=== PATIENT | female | born 1985 | race Caucasian/White ===

== ENCOUNTER → 2017-03-18 | Day surgery (SDC) | payer OTHER ==
[~2017-03-18] VITALS: Ht 170.2 cm; Wt 66.1 kg
[2017-03-18] VITALS (11 sets, daily range): BP systolic 104–119; BP diastolic 53–79; PULSE 50–96; RESP 13–21; O2SAT 93–100
[~2017-03-18] MED LIST: Atropine 0.4 mg/mL Inj IVPUSH PRN; Bupivacaine-MPF 0.5% 30 mL Inj INFILTRATE ONE; Dexamethasone 4 mg/mL Inj ONE; EPHEDrine Sulfate 50 mg/mL Inj IM ONE; EPHEDrine Sulfate 50 mg/mL Inj IVPUSH PRN; EPHEDrine/NS 5 mg/mL 5 mL Syringe ONE; Glycopyrrolate 0.2 MG/ML 1mL Inj ONE; HYDR-4003 PO; HYDROmorphone 1 mg/mL Inj IVPUSH PRN; Labetalol 5 mg/mL 20 mL Inj IV PRN; Lactated Ringer's 1,000 ML IV SCH; Lactated Ringer's 500 ML IV PRN; MetoCLOpramide 5 mg/mL 2 mL Inj IVPUSH PRN; Neostigmine 1 mg/mL 10 mL Inj ONE; Ondansetron 2 mg/mL 2 mL Inj IVPUSH PRN; Ondansetron 2 mg/mL 2 mL Inj ONE; Phenylephrine 10,000 mCg/mL Inj IVPUSH PRN; Propofol 10,000 mCg/mL 20 mL Inj ONE; Rocuronium 10 mg/mL 5 mL Inj ONE; diphenhydrAMINE 25 mg Capsule PO PRN; fentaNYL-PF 50 mCg/mL 2 mL Inj IVPUSH PRN; fentaNYL-PF 50 mCg/mL 2 mL Inj ONE; hydrOXYzine Inj 25 MG/1 mL SDV IM ONE; oxyCODONE-Acetamin 5-325 mg Tablet PO PRN
[2017-03-18] MEDS: Lactated Ringer's 1,000 ML IV SCH ×2 (09:33→12:56)
--- NOTE | 2017-03-18 13:13 | PCM.HPANE ---
Patient Data Surgeon Admitting Provider: Attending Provider:Keith Nolen MD Primary Care Physician:Eyal Other Provider:Troy Hugo Anesthesia Reason for Visit Chronic Pelvic Pain Ht/WT & BMI Height (Feet): 5 Height (Inches): 7.00 Weight (Kilograms): 66.1 Body Mass Index 22.00 Allergies Coded Allergies: Sulfa (Sulfonamide Antibiotics) (Verified Allergy, Severe, THROAT SWELLING , 03/13/17) Penicillins (Verified Adverse Reaction, Intermediate, nausea, vomiting, ) Past Anesthesia History Anesthesia History: Denies:: Abnormal Airway, Anesthesia Reactions (woke up "panic"- put back to sleep ), Difficult Intubation, Fam Anesthesia Reaction Diabetes History Hx Diabetes?: No MRSA MRSA: No Medications Hypertension Medication: No Home Meds Incl Beta Rishi: No Reported Medications Hydrocodone-Acetaminophen 5-325 mg 1 Each Tablet1 Tablet PO Q6H PRN For Pain Ref 0 03/13/17 History History of ENT Problems?: No HEENT History: Denies:: Abnormal Airway Cataracts Difficult Intubation Dysphagia Glaucoma Hearing Problem Sinus Problem TMJ Denture Type: None Teeth Condition: Within Normal Limits Hx of Heart Problems?: No Cardiovascular History: Denies:: AICD Abdominal Aortic Aneurism Atrial Fibrillation Cardiac Surgery Chest Pain Congestive Heart Failure Coronary Artery Disease Edema Heart Murmur Hypertension Irregular Heartbeat Pacemaker Peripheral Vascular Rheumatic Fever Thrombophlebitis Valvular Heart Disease Hx of Respiratory Problem?: No Respiratory History: Denies:: Asthma COPD Chest Surgery Cough Dyspnea Emphysema Hemoptysis Oxygen Administration Pneumonia Pulmonary Embolism Tuberculosis Use of C-PAP Machine Use of Inhalers / NEBS Hx Neurologic Problems?: No Neurological History: Denies:: Alzheimer's Disease CVA Dementia Dizziness Headaches Multiple Sclerosis Parkinson's Disease Peripheral Neuropathy Seizures TIA Hx of GI Problems?: No Hx of Problems?: No Genitourinary History: Denies:: Kidney Stones Urinary Tract Infection Female Hx: Denies:: Currently (S/P TUBAL) Problems with Breasts? Skin History: Denies:: History Skin Disorders? Pressure Ulcers Hx Musculoskeletal Problems?: No Musculoskeletal History: Denies:: Back Injury Fibromyalgia Joint Replacement Musculoskeletal Trauma Myasthenia Gravis Osteoarthritis Hx of Psycho/Social Problems?: Yes Psycho Social History: Positive for:: Hx Depression Denies:: Anxiety Hx Surgeries?: Yes (tubal ) Hx Any Other Health Problems?: Yes Other History: Denies:: Cancer Thyroid Disease History Blood Transfusions: Positive for:: Accept Blood Products? Denies:: Blood Transfusions Hx Diabetes: No Hx Alcohol Use: YesAlcoholic Drinks Per Day: two drinks every few weeksHx Substance Use: Yes (marijuana inhale randomly)Have You Smoked inLast 12 mo: No Stop/Bang S-Snoring: Do You Snore Loudly: No T-Tired: feel tired, fatigued: Yes O-Obsered: Observed not breath: No P-Blood Pressure: treated: No B- Body Mass Index > 35 kg/m2: No A- Age over 50: No N- Neck Large Circumference: No G- Gender Male: No RAMÓN Total Score: 1 RAMÓN Risk Assessment: Low Risk, <3 Yes Risk Assessment Category Category 1A: Patient has history of documented sleep apnea, and HAS NOT received any narcotic, sedative or anesthesia administration during this stay. Category 1B: Patient has history of documented sleep apnea, and HAS received any narcotic , sedative or anesthesia administration during this stay Category 2: Patient has SUSPECTED Obstructive Sleep Apnea, and HAS received any narcotic , sedative or anesthesia administration during this stay. Category 3: Patient has SUSPECTED Obstructive Sleep Apnea and HAS NOT received narcotic, sedative or anesthesia administration during this stay. Category 4: Outpatient in Procedural Areas with known sleep apnea or who screen positive for High Risk via the STOP/BANG questionnaire. Exam Exam Vital Signs Vital Signs Date Time Temp Pulse Resp B/P Pulse Ox O2 Delivery O2 Flow Rate FiO2 03/18/17 09:33 36.2 67 14 117/79 100 Room Air General Appearance: Alert, Oriented X3, Cooperative, No Acute Distress HEENT/AIRWAY: MP 1 Lungs: Clear to Auscultation, Normal Air Movement Heart: Exam Unremarkable, Regular Rate/Rhythm, No Murmurs/Rubs/Gallops Meds/Labs/Diagnostics Admission Meds Current Medications Lactated Ringer's (Lr) 1,000 ml @ 120 mls/hr Q8H20M IV Last administered on t 09:33; Start 03/18/17 at 05:00; Stop 03/18/17 at 13:19 Plan Impression Patient chart reviewed, patient interviewed and anesthestic plan with risks, benefits, and alternatives discussed, and informed consent obtained. NPO per Anesth. Guidelines: Yes ASA Physical Status: ASA2 Mod Systemic Disease Anesthetic Plan: GA Bene/Risks/Altern/Consents: Yes HP Complete Prior to Induction: Yes Nicholas Christian MD Mar 18, 2017 10:04
--- NOTE | 2017-03-18 14:16 | PCM.DIMED ---
Discharge Instructions Date of Service Mar 18, 2017 Dates of Hospitalization Diet Discharge Diet: No restrictions Activity Discharge Activity: No restrictions Call your provider Call your provider for: Fever or Chills, Shortness of breath, Bleeding, Chest pain, Vomitting, Excessive diarrhea, Weakness (unilateral) Patient Instructions Follow-up with PCP in: 2 weeks Keith Nolen MD Mar 18, 2017 14:16
--- NOTE | 2017-03-18 14:35 | PCM.ANEP1 ---
Post Anesthesia PACU Phase 1 Assessment Vital Signs Vital Signs Date Time Temp Pulse Resp B/P Pulse Ox O2 Delivery O2 Flow Rate FiO2 03/18/17 14:27 80 20 111/54 93 Room Air 03/18/17 14:20 96 13 110/62 93 Room Air 03/18/17 14:15 79 14 108/53 97 Room Air 03/18/17 14:10 36.3 73 17 119/62 98 Room Air 03/18/17 09:33 36.2 67 14 117/79 100 Room Air Anesthetic Administered: GA Level of Alertness: Awake, talking RICHARDSON's with Equal Strength: Yes Pain: No Nausea or Vomiting: Yes CV Function & Hydration Stable: Yes Airway Device: Endotrachial Tube Oxygen Delivery: Nasal Cannula Lungs: Clear to Auscultation, Normal Air Movement PACU Phase 2 Assessment Complications: No Follow up Care: N/A Patient Instructions Provided: N/A Nicholas Christian MD Mar 18, 2017 14:35
--- NOTE | 2017-03-18 14:52 | OP ---
[address] [address] OPERATIVE REPORT PATIENT: NOREEN HUNT : 1985 MR#: [id number] ADMIT: 03/18/2017 JOB ID: [id number] DATE OF SURGERY: 03/18/2017 PROCEDURE: Diagnostic laparoscopy. PREOPERATIVE DIAGNOSIS(ES): Chronic pelvic pain. POSTOPERATIVE DIAGNOSIS(ES): Chronic pelvic pain. SURGEON: Keith Nolen MD VEHICLE MONITOR TECHNICIAN: Natalie Sy MD. The assistance of Dr. Sy was necessary for proper exposure of anatomical structures, visualization of them during the procedure, and retraction and manipulation of the tissue. ANESTHESIA: General. Nicholas Christian MD ESTIMATED BLOOD LOSS: 2 mL ESTIMATED URINE OUTPUT: 100 mL FLUIDS: 700 mL of lactated Ringer. COMPLICATIONS: None. INDICATION FOR THE PROCEDURE: The patient is a 31-year-old who had a sterilization procedure with bilateral salpingectomy a year ago. She has been complaining of chronic pelvic pain since then, mostly on the left side, located in her left adnexa. She consented for diagnostic laparoscopy to rule out any possible adhesions. FINDINGS: Normal appearance of the cervix, vagina, and perineum. The uterus is normal in size, boggy in appearance, normal in shape. Normal appearance of the ovaries, surgically absent fallopian tubes. No adhesions identified between the uterus and ovaries and adjacent structures. Serial images, a total number of 12, were obtained during the diagnostic laparoscopy. DESCRIPTION OF PROCEDURE: The patient was taken to the operating room, where she underwent general anesthesia without difficulties. The patient was placed in dorsal lithotomy position using Yovany stirrups. She was prepped and draped in the usual surgical fashion. A time-out was performed verifying correct patient and correct procedure. Desi Hugger was used to maintain adequate core body temperature. The pelvic examination was performed. Two Gonzalez retractors were placed into the vagina. The cervix was visualized and a [place] uterine manipulator was placed. It was removed at the end of the procedure. Little catheter was placed as well. Attention was then directed to the patient's abdomen, where local Marcaine was injected in the paraumbilical area. Veress needle was introduced and appropriate pneumoperitoneum was achieved. A 5 mm vertical subumbilical incision was made with a scalpel and a 5 mm trocar was placed through the incision. The pelvis was visualized. Two additional skin incisions were made in the patient's left and right lower quadrants corresponding to prior incision placement during the sterilization procedure. Two trocars were placed through the incision. Using blunt probe and DeBakey grasper the bowels were moved away from the lower pelvis. The patient was placed in Trendelenburg position. All the abdomen and pelvis were examined with images obtained. No adhesions were found. The abdomen was desufflated from the CO2 gas after all the instruments and trocars were removed. The trocar skin incisions were reapproximated using 4-0 Monocryl. Hemostatic dressings were applied. The [place] uterine manipulator was removed. The Little catheter was removed as well. The patient was repositioned back into the supine position. She tolerated the procedure well and was transferred to the recovery room in stable condition.
== END | disposition home or self-care (01) ==
LOC: SAS 09:09
PROVIDERS: ATTEND Legal Medicine
DX: R10.2 Pelvic and perineal pain (principal); F32.9 Major depressive disorder, single episode, unspecified
CPT/HCPCS: 49320; J1100; J1885; J2250; J2405; J2704; J2710; J3010; J3410; J7120